=== PATIENT | female | born 1990 | race Caucasian/White ===

== ENCOUNTER 2020-04-18 17:53 | Inpatient (IN) ==
[2020-04-18] MEDS ORDERED: Dinoprostone 10 MG VAG.SUPP VAGINAL ONE (19:15)
[2020-04-18 21:29] LABS: Urine Benzodiazepine Screen None Detected (None Detect); Urine Cannabinoids Screen None Detected (None Detect); Urine Opiates Screen None Detected (None Detect)
[2020-04-19 04:07] LABS: ABS Basophils 0.1 10^3/ul (0-0.2); ABS Eosinophils 0.2 10^3/ul (0-0.6); ABS Lymphocytes 2.3 10^3/ul (1.0-4.8); ABS Monocytes 0.8 10^3/ul (0-0.8); ABS Neutrophils 7.3 10^3/ul (1.5-7.7); Eosinophil % 1.5 %; Hematocrit 37 % (35-47); Hemoglobin 13.2 g/dL (12.0-16.0); Lymphocyte % 21.7 %; Mean Corpuscular HGB Conc 36 g/dL (31-36); Mean Corpuscular Hemoglobin 32 pg (27-31); Mean Corpuscular Volume 90 fL (80-97); Mean Platelet Volume 9.2 fL (7.4-10.4); Nucleated Red Blood Cells % 0.1; Platelet Count 188 10^3/uL (150-450); Red Blood Count 4.11 10^6 /uL (3.70-4.87); Red Cell Distribution Width 14 % (10-15); White Blood Count 10.7 10^3/uL (3.5-10.8)
[2020-04-19] MEDS: Morphine 10 MG/ML VIAL (1 ml) IV PRN ×2 (04:08→19:53)
[2020-04-19] MEDS ORDERED: Oxytocin in LR 20 UNITS/1,000 ML BAG IVPB SCH (14:00)
[2020-04-19] MEDS ORDERED: Promethazine INJ(RESTRICTED) 25 MG/ML 1 ml VIAL IV ONE (19:41)
[2020-04-20] MEDS ORDERED: OBEPIDURAL 250 ML EPIDURAL ONE (00:52)
[2020-04-20] MEDS ORDERED: Lactated Ringers 1000 ml BAG 1,000 ML IV ONE (01:14)
[2020-04-20] MEDS ORDERED: Sodium Citrate/Citric Acid LIQ 15 ML UDC PO PRN (01:14)
[2020-04-20] MEDS ORDERED: Phenylephrine 40 mcg/mL 10mL (400mcg) SYRINGE IV PUSH PRN ×2 (01:14)
[2020-04-20] MEDS ORDERED: EPHEDrine (Pressors) 50 MG/ML VIAL IV PUSH PRN ×2 (01:14)
[2020-04-20] MEDS ORDERED: Lactated Ringers 1000 ml BAG 1,000 ML IV SCH ×2 (02:00→06:00)
[2020-04-20] MEDS ORDERED: OBEPIDURAL 250 ML EPIDURAL SCH (02:00)
[2020-04-20] MEDS ORDERED: Clindamycin 900 MG/D5W BAG 900 MG/50 ML BAG IVPB ONE (03:52)
[2020-04-20] MEDS ORDERED: Gentamicin ADULT 400 MG in NS 0.9% 100 ml BAG 100 ML IVPB ONE (04:00)
[2020-04-20] MEDS ORDERED: Oxytocin 10 UNITS/ML 1 ML VIAL ONE ×2 (04:52→05:27)
[2020-04-20] MEDS ORDERED: Ondansetron 4 mg VIAL 2 MG/ML 2 ml VIAL ONE (05:03)
[2020-04-20] MEDS ORDERED: Dexamethasone IV 4 MG/ML VIAL 1 ml VIAL ONE (05:03)
[2020-04-20] MEDS ORDERED: Lidocaine 2% w/ EPI 1:200,000 MPF 20 ML SDV VIAL ONE (05:04)
[2020-04-20] MEDS ORDERED: Sodium Bicarbonate 8.4% 10 ML VIAL IV ONE (05:04)
[2020-04-20] MEDS ORDERED: Morphine PF AMP (0.5MG/ML) 5 MG/10 ML AMP ONE (05:04)
[2020-04-20] MEDS ORDERED: Naloxone 0.4 mg VIAL 0.4 mg/ml 1 ml VIAL IV PRN ×2 (05:09→05:10)
[2020-04-20] MEDS ORDERED: Ondansetron 4 mg VIAL 2 MG/ML 2 ml VIAL IV PRN (05:09)
[2020-04-20] MEDS ORDERED: Naloxone 4 mg VIAL (10 ml) 2 MG in NS 0.9% 250 ml 250 ML IV PRN (05:09)
[2020-04-20] MEDS ORDERED: diPHENhydraMINE IV 50 MG/ML 1 ml VIAL (BENADRYL) IV PRN (05:09)
[2020-04-20] MEDS ORDERED: HYDROmorphone 1 MG/1 ML SYRINGE IV PRN (05:10)
[2020-04-20] MEDS ORDERED: Glycerin ADULT 2.4 gm SUPP PR PRN (05:56)
[2020-04-20] MEDS ORDERED: Dibucaine 1% OINT 28.35 GM TUBE PR PRN (05:56)
[2020-04-20] MEDS ORDERED: Witch Hazel PAD JAR TOPICAL PRN (05:56)
[2020-04-21 06:05] LABS: ABS Eosinophils 0.1 10^3/ul (0-0.6); ABS Neutrophils 8.8 10^3/ul (1.5-7.7); Eosinophil % 0.7 %; Hematocrit 30 % (35-47); Hemoglobin 10.5 g/dL (12.0-16.0); Lymphocyte % 17.1 %; Mean Corpuscular HGB Conc 35 g/dL (31-36); Mean Corpuscular Hemoglobin 32 pg (27-31); Mean Corpuscular Volume 90 fL (80-97); Mean Platelet Volume 8.5 fL (7.4-10.4); Platelet Count 135 10^3/uL (150-450); Red Blood Count 3.34 10^6 /uL (3.70-4.87); Red Cell Distribution Width 15 % (10-15); White Blood Count 11.9 10^3/uL (3.5-10.8)
[2020-04-21] MEDS ORDERED: Measles, Mumps,Rubella VACC 0.5 ML/VIAL SUBCUT ONE (11:12)
[2020-04-23 08:22] VITALS: BP 143/77
== END 2020-04-23 10:31 | disposition home or self-care (01) | DRG 540 ==
LOC: MCHOBOUT 17:53 → MCHOB 21:21
PROVIDERS: ADMIT Obstetrics & Gynecology; ATTEND Obstetrics & Gynecology

== ENCOUNTER 2023-04-05 05:29 | Inpatient (IN) ==
[2023-04-05] MEDS ORDERED: Sodium Citrate/Citric Acid LIQ 15 ML UDC PO ONE ×2 (06:00)
[2023-04-05] MEDS ORDERED: Lactated Ringers 1000 ml BAG 1,000 ML IV SCH ×3 (06:00→11:00)
[2023-04-05] MEDS ORDERED: Lactated Ringers 1000 ml BAG 1,000 ML IV ONE (06:00)
[2023-04-05] MEDS ORDERED: Buffered Lidocaine 1% SYRIN 1 ml INTRADERM ONE ×2 (06:00)
[2023-04-05] MEDS ORDERED: ceFOXitin 2 GM PREMIX 50 ML IVPB ONE (06:30)
[2023-04-05 07:26] LABS: ABS Eosinophils 0.1 10^3/uL (0.0-0.5); ABS Lymphocytes 2.3 10^3/uL (1.0-4.8); ABS Monocytes 0.8 10^3/uL (0.0-0.9); ABS Neutrophils 7.6 10^3/uL (1.5-7.6); ABS Nucleated RBC 0.01 10^3/ul; Eosinophil % 1.3 %; Hematocrit 35.3 % (35-45); Hemoglobin 12.5 g/dL (11.5-14.3); Lymphocyte % 20.9 %; Mean Corpuscular Hemoglobin 31.3 pg (27-33); Mean Corpuscular Hgb Conc 35.5 g/dL (31-36); Mean Corpuscular Volume 88.2 fL (80-97); Mean Platelet Volume 8.6 fL (7.5-11.2); Platelet Count 163 10^3/uL (150-450); Red Cell Distribution Width 14.4 % (12-17); White Blood Count 10.8 10^3/uL (3.8-11.8)
[2023-04-05] MEDS ORDERED: Oxytocin 10 UNITS/ML 1 ML VIAL ONE (07:35)
[2023-04-05] MEDS ORDERED: Scopolamine 1 mg/72hr PATCH ONE (07:35)
[2023-04-05] MEDS ORDERED: Phenylephrine 40 mcg/mL 10mL (400mcg) SYRINGE ONE (07:35)
[2023-04-05] MEDS ORDERED: Morphine PF AMP (0.5MG/ML) 5 MG/10 ML AMP ONE (07:36)
[2023-04-05] MEDS ORDERED: Acetaminophen IV 1 GM/100ML 1,000 MG/100 ML BAG IV ONE (09:04)
[2023-04-05 09:33] LABS: Urine Appearance Clear; Urine Bilirubin Negative (Negative); Urine Blood Negative (Negative); Urine Color Straw; Urine Glucose Negative (Negative); Urine Ketones Negative (Negative); Urine Nitrite Negative (Negative); Urine Protein Negative (Negative); Urine Specific Gravity 1.004 (1.002-1.030); Urine Urobilinogen Negative (Negative)
[2023-04-05 09:40] LABS: Urine Benzodiazepine Screen None Detected (None Detect); Urine Cannabinoids Screen None Detected (None Detect); Urine Opiates Screen None Detected (None Detect)
[2023-04-05] MEDS ORDERED: fentaNYL 100 mcg/2 ml 50 MCG/ML VIAL ONE (09:53)
[2023-04-05] MEDS ORDERED: Ondansetron 4 mg VIAL 2 MG/ML 2 ml VIAL ONE (09:55)
[2023-04-05] MEDS ORDERED: Naloxone 0.4 mg VIAL 0.4 mg/ml 1 ml VIAL IV PRN (10:13)
[2023-04-05] MEDS ORDERED: fentaNYL 100 mcg/2 ml 50 MCG/ML VIAL IV PRN (10:13)
[2023-04-05] MEDS ORDERED: Metoclopramide 5 MG/ML VIAL (10 mg) IV PRN (10:14)
[2023-04-05] MEDS ORDERED: Acetaminophen IV 1 GM/100ML 1,000 MG/100 ML BAG IV PRN (10:14)
[2023-04-05] MEDS ORDERED: Ondansetron 4 mg VIAL 2 MG/ML 2 ml VIAL IV PRN (10:14)
[2023-04-05] MEDS ORDERED: Naloxone 0.4 mg VIAL 0.4 mg/ml 1 ml VIAL IV PUSH PRN (10:14)
[2023-04-05] MEDS ORDERED: Glycerin ADULT 2.4 gm SUPP PR PRN (10:29)
[2023-04-05] MEDS ORDERED: Dibucaine 1% OINT 28.35 GM TUBE PR PRN (10:29)
[2023-04-05] MEDS ORDERED: Witch Hazel PAD JAR TOPICAL PRN (10:29)
[2023-04-05] MEDS ORDERED: Oxytocin in LR 20,000 MILLI.UNIT/1,000 ML BAG IV SCH (10:45)
[2023-04-06 07:56] LABS: ABS Basophils 0.1 10^3/uL (0.0-0.1); ABS Eosinophils 0.1 10^3/uL (0.0-0.5); ABS Lymphocytes 1.7 10^3/uL (1.0-4.8); ABS Neutrophils 8.4 10^3/uL (1.5-7.6); Hematocrit 31.9 % (35-45); Hemoglobin 11.5 g/dL (11.5-14.3); Lymphocyte % 15.2 %; Mean Corpuscular Hemoglobin 31.7 pg (27-33); Mean Corpuscular Hgb Conc 36.1 g/dL (31-36); Mean Platelet Volume 8.5 fL (7.5-11.2); Platelet Count 160 10^3/uL (150-450); Red Blood Count 3.63 10^6/uL (3.63-4.92); Red Cell Distribution Width 14.3 % (12-17); White Blood Count 11.3 10^3/uL (3.8-11.8)
[2023-04-07 09:39] VITALS: BP 119/57
== END 2023-04-07 14:00 | disposition home or self-care (01) | DRG 540 ==
LOC: MCHOB 05:29
PROVIDERS: ADMIT Obstetrics & Gynecology; ATTEND Obstetrics & Gynecology